=== PATIENT | male | born 1945 | race Caucasian/White ===

== ENCOUNTER → 2019-04-27 07:50 | Outpatient (CLI) | payer OTHER, SELFPAY ==
--- NOTE | 2019-04-27 | DI.ECHO.S_ITS ---
[facility] +---------+ [facility] +---------+ : : [address] : [place] : : : : [id number] : : : : Phone: [phone]+ Echocardiogram Report + + :Name: JOSE LEAVITT Study Date: 04/27/2019 Height: 212 in : :[facility] Weight: 66 lb : : Gender: Male BSA: 2.9 m2 : :: 1945 Age: 74 yrs BP: 140/74 mmHg: :Reason For Study: QTC : : Performed By: Erika Madera : :Referring: DEBORA CHAVEZ : + + Interpretation Summary Normal sinus rhythm. Normal LV size and wall thickness. There is basal inferior akinesis; mid- inferoseptal and distal septal hypokinesis. There findings could be due to a small prior myocardial infarction. EF is 60-65%. Normal chamber sizes. No significant valvular abnormalities. There are incidentally noted large liver cysts. Consider right upper quadrant ultrasound to better deliniate. No prior study available for comparison. Procedure: A two-dimensional transthoracic echocardiogram with color flow and Doppler was performed. The study quality was technically adequate. There is no prior echocardiogram noted for this patient. The patient was in normal sinus rhythm during the exam. Left Ventricle: The left ventricle is grossly normal size. There is normal left ventricular wall thickness. The ejection fraction is estimated to be 60- 65%. There is basal inferior akinesis; mid-inferoseptal and distal septal hypokinesis. Diastolic parameters suggest probable normal left ventricular diastolic function and normal filling pressures. Right Ventricle: The right ventricle grossly appears normal in size with probable normal systolic function. Atria: The left atrial size is normal. Right atrial size is normal. The interatrial septum is intact with no evidence for an atrial septal defect. Mitral Valve: The mitral valve is grossly normal. There is mild to moderate mitral regurgitation. Aortic Valve: The aortic valve is trileaflet. The aortic valve opens well. There is trace aortic regurgitation. Tricuspid Valve: The tricuspid valve leaflets are thin and pliable. There is mild tricuspid regurgitation. The right ventricular systolic pressure is estimated to be at least 29 mmHg based on an estimated right atrial pressure of 3 mm Hg. Pulmonic Valve: The pulmonic valve is not well seen, but is grossly normal. Great Vessels: The aortic root is normal size. The dimensions of the ascending aorta are normal. The aortic arch is at the upper limits of normal in size. The IVC is of normal diameter and collapses greater than 50% with a sniff. This suggests a low right atrial pressure of 3 mm Hg. Pericardium/ Pleura There is no pericardial effusion. There is no pleural effusion. MMode/2D Measurements & Calculations LVIDd: 4.7 cm Ao root diam: 3.6 cm LVIDs: 3.2 cm Aortic Jxn: 2.9 cm FS: 32.4 % asc Aorta Diam: 3.5 cm EPSS: 0.74 cm Ao Arch Diam (Prox Trans): 3.3 cm IVSd: 0.77 cm LVPWd: 0.90 cm LV singh. diameter/BSA (cm/m^2): 1.6 LV sys. diameter/BSA (cm/m^2): 1.1 LA dimension: 4.4 cm RA long axis: 5.2 cm LA A2 area: 24.1 cm2 RA area: 19.9 cm2 LA A4 area: 25.3 cm2 RA vol: 64.5 ml LA length (vol): 5.6 cm RA : 22.2 ml/m2 LA vol: 92.6 ml IVC diam: 1.1 cm LA vol index: 31.8 ml/m2 RVDd major: 5.6 cm RVD1 (basal): 3.7 cm RVD2 (mid): 2.8 cm Doppler Measurements & Calculations Ao V2 max: 157.3 cm/sec MV E max carlito: 89.5 cm/sec Ao V2 mean: 95.1 cm/sec MV A max carlito: 70.5 cm/sec Ao max P.9 mmHg MV E/A: 1.3 Ao mean P.5 mmHg Med Peak E' Carlito: 6.1 cm/sec Ao V2 VTI: 33.7 cm E/E' med: 14.7 Lat Peak E' Carlito: 9.9 cm/sec E/E' lat: 9.0 E/e' average: 11.9 MV dec time: 0.22 sec MV P1/2t: 64.9 msec MR ERO: 0.10 cm2 TR max carlito: 252.3 cm/sec MV P1/2t max carlito: 87.0 cm/sec TR max P.5 mmHg MVA(P1/2t): 3.4 cm2 PA V2 max: 77.2 cm/sec PA V2 mean: 57.8 cm/sec PA mean P.5 mmHg MR flow rate: 47.4 cm3/sec MR GARNETT radius: 0.44 cm Electronically signed by: Irais Valles M.D. on Reading Physician:04/28/2019 05:43 AM
== END ==
PROVIDERS: Visit Provider Physician Assistant
DX: I08.1 Rheumatic disorders of both mitral and tricuspid valves (principal); K76.89 Other specified diseases of liver
CPT/HCPCS: 93306